=== PATIENT | female | born 1985 | race Caucasian/White ===

== ENCOUNTER 2020-12-26 10:28 | Emergency (ER) | payer BC, MEDICAID ==
[~2020-12-26] VITALS: Ht 162.6 cm; Wt 88.6 kg
[~2020-12-26 10:28] MED LIST: NO HOME MEDS
[2020-12-26 10:40] VITALS: BP 117/84
[2020-12-26] MEDS ORDERED: ALBU6.7H9 INH (12:19)
[2020-12-26] MEDS ORDERED: DEXA4TAB67 PO (12:19)
== END 2020-12-26 12:20 | disposition home or self-care (01) ==
LOC: ER 10:29
DX: U07.1 COVID-19 (principal); R53.83 Other fatigue; R50.9 Fever, unspecified; R05 Cough; R06.02 Shortness of breath
CPT/HCPCS: 87635; 99283; C9803

== ENCOUNTER 2024-01-14 09:12 | Emergency (ER) | payer BC ==
[~2024-01-14] VITALS: Ht 162.6 cm; Wt 96.1 kg
[~2024-01-14 09:12] MED LIST changes: +ALBU6.7H14 INH; +DEXA4TAB67 PO
[2024-01-14 09:45] VITALS: TEMP 98
[2024-01-14 10:28] LABS: BASOPHILS % (AUTO) 0.4 % (0-1); EOSINOPHILS # (AUTO) 0.4 X10'3 (0-0.9); EOSINOPHILS % (AUTO) 4.2 % (0-6); HEMATOCRIT 45.3 % (35.0-45.0); HEMOGLOBIN 15.3 g/dl (12.0-16.0); LYMPHOCYTES # (AUTO) 2.4 X10'3 (1.1-4.8); LYMPHOCYTES % (AUTO) 28.3 % (21-51); MEAN CORPUSCULAR HEMOGLOBIN 30.3 PG (27.0-31.0); MEAN CORPUSCULAR HGB CONC 33.8 g/dL (33.0-36.5); MEAN CORPUSCULAR VOLUME 89.8 FL (78-98); MEAN PLATELET VOLUME 9.8 FL (7.4-10.4); MONOCYTES # (AUTO) 0.6 X10'3 (0-0.9); MONOCYTES % (AUTO) 6.7 % (2-12); NEUTROPHILS # (AUTO) 5.2 X10'3 (1.8-7.7); NEUTROPHILS % (AUTO) 60.4 % (42-75); PLATELET COUNT 203 X10'3 (140-440); RED BLOOD COUNT 5.05 X10'6 (4.20-5.60); RED CELL DISTRIBUTION WIDTH 13.6 % (11.5-14.5); WHITE BLOOD COUNT 8.5 X10'3 (4.5-11.0)
[2024-01-14 10:33] LABS: ALANINE AMINOTRANSFERASE 57 U/L (12-78); ALBUMIN 4.1 G/DL (3.4-5.0); ALKALINE PHOSPHATASE 107 IU/L (46-116); AMYLASE 63 U/L (25-115); ANION GAP 11 (8-16); ASPARTATE AMINO TRANSFERASE 35 U/L (10-37); BILIRUBIN,TOTAL 0.5 MG/DL (0.1-1.0); BLOOD UREA NITROGEN 20 MG/DL (7-18); BUN/CREATININE RATIO 20.4 (10.0-20.0); CALCIUM 9.2 MG/DL (8.5-10.1); CHLORIDE 102 MMOL/L (99-107); CREATININE 0.98 MG/DL (0.40-0.90); GLUCOSE 123 MG/DL (70-104); LIPASE 29 U/L (16-77); SODIUM 135 MMOL/L (135-145); TOTAL CARBON DIOXIDE 21.9 MMOL/L (24-32); TOTAL PROTEIN 8.2 G/DL (6.4-8.2); eCRCL 67 ML/MIN; eGFR 63 ML/MIN
[2024-01-14 11:45] LABS: URINE HCG NEGATIVE (NEG)
[2024-01-14 11:46] LABS: BILIRUBIN,URINE NEGATIVE (Neg); CLARITY,URINE CLEAR (Clear); COLOR,URINE YELLOW (Yellow); GLUCOSE, URINE NEGATIVE (Neg); KETONES,URINE NEGATIVE (Neg); LEUKOCYTE ESTERASE ,URINE NEGATIVE (Neg); NITRITES, URINE NEGATIVE (Neg); OCCULT BLOOD,URINE NEGATIVE (Neg); PH,URINE 5.5 (4.8-8.0); PROTEIN,URINE NEGATIVE (Neg); UROBILINOGEN,URINE 0.2 E.U/dL (0.2-1.0)
[2024-01-14 11:51] LABS: UA COLLECTION TYPE CLN CATCH MIDSTREAM
[2024-01-14 12:36] VITALS: RESP 16
[2024-01-14 13:36] VITALS: BP 114/96; PULSE 72; O2SAT 100
== END 2024-01-14 13:46 | disposition home or self-care (01) ==
LOC: ER 09:13
DX: R10.32 Left lower quadrant pain (principal); Z91.09 Other allergy status, other than to drugs and biological substances; Z79.899 Other long term (current) drug therapy
CPT/HCPCS: 36415; 76856; 80053; 81003; 81025; 82150; 83690; 85025; 93976; 99284